=== PATIENT | female | born 1965 | race African-American/Black ===

== ENCOUNTER 2019-05-27 16:16 | Inpatient (IN) | payer OTHER ==
[~2019-05-27] VITALS: Ht 149.9 cm; Wt 64.0 kg
[2019-05-27] MEDS ORDERED: ONDANSETRON HCL INJ 2MG/ML 2ML 2 MG/ML VIAL IV PRN (16:45)
[2019-05-27] MEDS ORDERED: ASPIRIN 81 MG CHEW TAB PO ONE ×2 (16:45)
[2019-05-27] MEDS ORDERED: MORPHINE SULFATE 2 MG/ML SYR 1ML IV PRN (16:45)
[2019-05-27] MEDS ORDERED: MORPHINE SULFATE INJ 4 MG/ML INJ 1ML IV PRN (17:00)
[2019-05-27] MEDS ORDERED: ENOXAPARIN INJ 80 MG/0.8 ML SYR SC SCH ×2 (17:00→21:00)
[2019-05-27 17:10] LABS: BASOPHILS % 0.4 % (0.0-1.0); EOSINOPHILS # (AUTO) 0.4 (0.0-0.4); EOSINOPHILS % 3.9 % (0.0-6.0); HEMATOCRIT 39.4 % (34.2-44.1); HEMOGLOBIN 11.8 g/dL (12.0-16.0); LYMPHOCYTES # (AUTO) 2.9 (1.0-3.2); LYMPHOCYTES % 29.6 % (18.0-39.1); MEAN CORPUSCULAR HEMOGLOBIN 27.5 pg (28-32); MEAN CORPUSCULAR HGB CONC 29.9 g/dL (31-35); MEAN CORPUSCULAR VOLUME 91.8 fL (81-99); MONOCYTES # (AUTO) 0.7 (0.2-0.8); NEUTROPHILS # (AUTO) 5.8 (2.1-6.9); NEUTROPHILS % 58.9 % (38.7-80.0); PLATELET COUNT 282 x10e3/uL (140-360); RED BLOOD COUNT 4.29 x10e6/uL (3.6-5.1); RED CELL DISTRIBUTION WIDTH 16.3 % (11.7-14.4)
[2019-05-27 17:27] LABS: ALANINE AMINOTRANSFERASE 6 IU/L (0-55); ALBUMIN 3.4 g/dL (3.5-5.0); ALBUMIN/GLOBULIN RATIO 0.7 (0.8-2.0); ALKALINE PHOSPHATASE 89 IU/L (40-150); ANION GAP 12.6 mmol/L (8-16); BLOOD UREA NITROGEN 7 mg/dL (7-26); BUN/CREATININE RATIO 8 (6-25); CALCIUM 9.9 mg/dL (8.4-10.2); CARBON DIOXIDE 35 mmol/L (22-29); CHLORIDE 93 mmol/L (98-107); CREATININE, SERUM 0.85 mg/dL (0.57-1.11); EST GLOMERULAR FILTRATION RATE > 60 ML/MIN (60-); GLUCOSE 109 mg/dL (74-118); POTASSIUM 3.6 mmol/L (3.5-5.1); SODIUM 137 mmol/L (136-145)
[2019-05-27 17:36] LABS: ABG HCO3 36 mmol/L (23-28); ABG PCO2 55 mmHg (41-51); ABG PH 7.43 (7.31-7.41); ABG PO2 114 mmHg (80-105)
[2019-05-27 17:43] LABS: CREATINE KINASE 108 IU/L (29-168)
[2019-05-27 18:22] LABS: INR 0.92; PROTHROMBIN TIME 12.9 seconds (11.9-14.5)
[2019-05-27] MEDS ORDERED: ZOLPIDEM TARTRATE 5 MG TAB PO PRN (18:30)
[2019-05-27] MEDS ORDERED: HYDROCODONE/APAP 10MG-325MG TAB PO PRN (18:30)
--- NOTE | 2019-05-27 18:49 | Pre Op History & Physical ---
CHIEF COMPLAINT: Dyspnea and pulmonary embolism on outside CT scan. HISTORY OF PRESENT ILLNESS: The patient is a 63-year-old woman with a history of asthma. She also has a history of HIV and is on anti-retroviral therapy. Her last CD4 count and viral load were within normal limits. She has had problems with recurrent dyspnea and hypoxemia and required hospitalizations at [facility] and then at a town. She had no cardiac problems. She was treated for asthma with some benefit. She came back to the office late last week with low oxygen saturation, but did not complain of dyspnea or chest pain. She was scheduled for a CT scan with the PE protocol today. She had pulmonary emboli in the right upper lobe and the left lobe. PAST MEDICAL HISTORY: 1. HIV. 2. Asthma. 3. No prior cardiac problems. PAST SURGICAL HISTORY: Noncontributory. ALLERGIES: THE PATIENT IS ALLERGIC TO BACTRIM. FAMILY HISTORY: Noncontributory. SOCIAL HISTORY: The patient is not an active smoker. She is not an active drinker. REVIEW OF SYSTEMS: The patient has no headache or neck pain. She is not having any chest pain. She does not complain of dyspnea, but she has noted low oxygen saturations at home. She does not complain of chest pain. She has no nausea or vomiting. She has no leg edema. PHYSICAL EXAMINATION: VITAL SIGNS: The patient is afebrile. The blood pressure is 120/77, saturation is 96% on high-flow oxygen. HEENT: Shows no facial swelling or erythema. The nasal mucosa is normal. The oropharynx is normal. LYMPHATIC: Shows no submandibular, cervical, or supraclavicular adenopathy. CARDIAC: Reveals regular rate and rhythm with normal S1, S2. LUNGS: Auscultation of lungs reveals clear breath sounds bilaterally. There is no wheezing. ABDOMEN: Soft, nontender. There is no rebound or guarding. EXTREMITIES: Show no leg edema or calf tenderness. There is no cyanosis or clubbing. SKIN: Shows no rashes. NEUROLOGICAL: Shows no focal abnormalities. LABORATORY DATA: The BUN to creatinine ratio is 7-0.85. Other electrolytes are within normal limits. The white blood cell count is 9.8 and hemoglobin is 11.8. Blood gas is 7.43, 55, 114, and 36. IMPRESSION: 1. Pulmonary emboli. 2. Chronic persistent asthma. 3. Human immunodeficiency virus. PLAN: 1. The patient will be started on Lovenox and 1 mg/kg twice daily. 2. She will have an echocardiogram. 3. Consider thrombolytics if the patient has hemodynamic instability or elevated right-sided pressures on echocardiogram. 4. Continue outpatient inhalers. 5. Continue anti-retroviral therapy. 6. Consultation with Infectious Disease. MD JESSICA Goodman/VINNIE /[id number]
[2019-05-27] MEDS ORDERED: DICYCLOMINE HCL10 MG (20:01)
[2019-05-27] MEDS ORDERED: GUAIFENESIN-CO118 M1 (20:01)
[2019-05-27] MEDS ORDERED: LISINOPRIL10 MG (20:01)
[2019-05-27] MEDS ORDERED: ODEFSEY (20:01)
[2019-05-27] MEDS ORDERED: FERROUS SULFAT325 MG (20:01)
[2019-05-27] MEDS ORDERED: FAMOTIDINE20 MG (20:01)
[2019-05-27] MEDS ORDERED: ONDANSETRON HCL4 MG (20:01)
[2019-05-27] MEDS ORDERED: ACETAMINOPHEN-1 EAC4 (20:01)
[2019-05-27] MEDS ORDERED: ASPIRIN EC81 MG (20:01)
[2019-05-27] MEDS ORDERED: PREDNISONE10 MG (20:01)
[2019-05-27] MEDS ORDERED: NATEGLINIDE120 MG (20:01)
[2019-05-27] MEDS ORDERED: VALACYCLOVIR500 MG (20:01)
[2019-05-27] MEDS ORDERED: MAG-OXIDE400 MG (20:01)
[2019-05-27] MEDS ORDERED: NYSTATIN500000 UNI (20:01)
[2019-05-27] MEDS ORDERED: SIMVASTATIN20 MG PO (20:01)
[2019-05-27] MEDS ORDERED: CETIRIZINE HCL10 MG (20:01)
[2019-05-27] MEDS ORDERED: METFORMIN HCL1000 MG (20:01)
[2019-05-27] MEDS ORDERED: FLUTICASONE PRO16 GM (20:01)
[2019-05-27] MEDS ORDERED: HYDROXYZINE HCL10 MG (20:01)
[2019-05-27] MEDS ORDERED: LYRICA150 MG (20:01)
[2019-05-27] MEDS ORDERED: SUCRALFATE1 GM (20:01)
[2019-05-27] MEDS ORDERED: VERAPAMIL ER120 M1 (20:01)
[2019-05-27 21:00] VITALS: BP 111/73
[2019-05-27 22:03] VITALS: BP 105/68
[2019-05-27 23:00] VITALS: BP 122/80
[2019-05-27] MEDS: BUDESONIDE/FORMOTEROL 160/4.5MCG INHALER INH SCH (23:05)
[2019-05-27 23:23] VITALS: BP 122/80
[2019-05-27] MEDS ORDERED: PNEUMOCOCCAL VACCINE POLYVALENT 23 MCG/0.5 ML VIAL IM SCH (23:31)
[2019-05-28] VITALS (26 sets, daily range): BP systolic 93–121; BP diastolic 46–76
[2019-05-28 01:47] LABS: CREATINE KINASE 67 IU/L (29-168)
[2019-05-28 05:27] LABS: BASOPHILS % 0.6 % (0.0-1.0); EOSINOPHILS # (AUTO) 0.4 (0.0-0.4); HEMATOCRIT 34.5 % (34.2-44.1); HEMOGLOBIN 10.2 g/dL (12.0-16.0); LYMPHOCYTES # (AUTO) 2.6 (1.0-3.2); LYMPHOCYTES % 40.9 % (18.0-39.1); MEAN CORPUSCULAR HEMOGLOBIN 27.6 pg (28-32); MEAN CORPUSCULAR HGB CONC 29.6 g/dL (31-35); MEAN CORPUSCULAR VOLUME 93.2 fL (81-99); MONOCYTES # (AUTO) 0.6 (0.2-0.8); MONOCYTES % 8.7 % (4.4-11.3); NEUTROPHILS # (AUTO) 2.7 (2.1-6.9); NEUTROPHILS % 43.5 % (38.7-80.0); PLATELET COUNT 201 x10e3/uL (140-360); RED CELL DISTRIBUTION WIDTH 16.4 % (11.7-14.4)
[2019-05-28 05:41] LABS: BLOOD UREA NITROGEN 7 mg/dL (7-26); BUN/CREATININE RATIO 10 (6-25); CALCIUM 9.2 mg/dL (8.4-10.2); CARBON DIOXIDE 31 mmol/L (22-29); CHLORIDE 97 mmol/L (98-107); CREATININE, SERUM 0.73 mg/dL (0.57-1.11); EST GLOMERULAR FILTRATION RATE > 60 ML/MIN (60-); GLUCOSE 135 mg/dL (74-118); SODIUM 140 mmol/L (136-145)
[2019-05-28] MEDS: ENOXAPARIN INJ 80 MG/0.8 ML SYR SC SCH ×2 (05:54→16:59)
--- NOTE | 2019-05-28 06:15 | Diagnostic Imaging Report ---
EXAMINATION: CHEST SINGLE (PORTABLE) COMPARISON: None INDICATION: ^Pulmonary Emboli ^[id number] ^0555 DISCUSSION: Frontal view of the chest obtained at 0558 hours. HEART AND MEDIASTINUM: The heart is mildly enlarged. LINES: None. LUNGS: Lung volumes are low. Multifocal airspace opacities are present, particularly in the right lung. No pneumonia or pulmonary edema. PLEURA: No large effusions. No pneumothorax. BONES AND SOFT TISSUES: No focal osseous lesion. The soft tissues are normal. IMPRESSION: Multifocal airspace opacities suggestive of pneumonia in the appropriate clinical setting. Mild cardiomegaly. Signed by: Dr. Phoenix Brady MD on 05/28/2019 6:12 AM
[2019-05-28] MEDS: BUDESONIDE/FORMOTEROL 160/4.5MCG INHALER INH SCH ×2 (07:26→18:45)
[2019-05-28 08:54] LABS: CREATINE KINASE 55 IU/L (29-168)
[2019-05-28] MEDS ORDERED: FAMOTIDINE 20 MG TAB PO SCH (09:00)
[2019-05-28] MEDS ORDERED: ONDANSETRON HCL 4 MG ORAL DISINTEGRATING TAB PO PRN (09:00)
[2019-05-28] MEDS ORDERED: HOME MEDICATION--PATIENTS OWN PO SCH ×2 (09:00)
[2019-05-28] MEDS: SUCRALFATE 1 GM TAB PO SCH ×4 (09:14→23:24)
[2019-05-28] MEDS: ODEFSEY PO SCH (09:15)
[2019-05-28] MEDS: PREDNISONE 10 MG TAB PO SCH (09:15)
[2019-05-28] MEDS: FERROUS SULFATE 325 MG TAB PO SCH ×2 (09:15→09:54)
[2019-05-28] MEDS: PREGABALIN 75 MG CAP PO SCH ×3 (09:16→21:24)
[2019-05-28] MEDS: LISINOPRIL 10 MG TAB PO SCH (09:16)
[2019-05-28] MEDS ORDERED: GUAIFENESIN/DEXTROMETHORPHAN LIQD 5 ML UDC PO PRN (09:30)
[2019-05-28] MEDS: FLUTICASONE PROPIONATE NASAL SPRAY NS SCH ×2 (09:33→16:00)
[2019-05-28] MEDS: NATEGLINIDE 120 MG TAB PO SCH ×3 (09:33→21:24)
[2019-05-28] MEDS ORDERED: GUAIFENESIN/CODEINE 10 ML CUP PO PRN (10:00)
--- NOTE | 2019-05-28 12:12 | Progress Note ---
DATE: SUBJECTIVE: The patient remains on high-flow oxygen. She is on 50% with saturations of 97%. She does not complain of any dyspnea or chest pain. PHYSICAL EXAMINATION: VITAL SIGNS: The patient is afebrile. The vital signs are stable. HEENT: Shows no facial swelling or erythema. CARDIAC: Reveals a regular rate and rhythm with a normal S1, S2. There are no murmurs or rubs. LUNGS: Auscultation of lungs reveal clear breath sounds bilaterally. There is no wheezing. ABDOMEN: Soft, nontender. There is no rebound or guarding. EXTREMITIES: Shows no leg edema or calf tenderness. There is no cyanosis or clubbing. SKIN: Shows no rashes. NEUROLOGICAL: Shows no focal abnormalities. IMPRESSION: 1. Pulmonary emboli. 2. Hypertension. 3. Asthma. 4. Human immunodeficiency virus. PLAN: 1. Continue Lovenox twice daily. 2. Await echocardiogram results. 3. Wean oxygen as tolerated. MD JESSICA Goodman/VINNIE /[id number]
--- NOTE | 2019-05-28 13:16 | NUR ---
Nutrition Screen Note RD Recommendation for Physician: Consider liberalizing diet to promote Po intake Plan of Care: RD following, monitoring for tolerance and adequacy Nutrition reason for involvement: Nutrition Risk Trigger - MST Primary Diagnose(s): PE, hypoxia PMH:HIV, asthma Ht:59 in Wt:141lb BMI:28.5 kg/m2 IBW:95lb +/-10% RD Assessment: (05/28/2019) Chart reviewed. Labs and meds reviewed. Initial encounter with patient. Pt is reporting a decreased appetite and 20 pound wt loss over the last 3 months [employer] with a UBW of about 160#. RD and dietetic assistant obtained Pt's food preferences. Pt refusing commercial beverages and has limited acceptance of snacks offered at [facility]. Pt ate about 50% of lunch at time of visit. Pt ate 100% of meals yesterday. Encouraged Po intake and feel that Pt's PO intake will improve now that food preferences have been obtained. Pt denies nausea, vomiting, diarrhea nor has any difficulty chewing or swallowing. Pt denies any food allergies. Current Diet: Cardiac diet Malnutrition Evaluation (05/28/2019) The patient does not meet criteria for a specified degree of malnutrition at this time. Will re-evaluate at follow-up as appropriate. Diet Education Needs Assessment: Diet education not indicated. Nutrition Care Level: Low Signed: Denzel Gerard RD, LD, [facility]
[2019-05-28 18:29] LABS: CREATINE KINASE 46 IU/L (29-168)
--- NOTE | 2019-05-28 21:04 | Consultation ---
DATE OF CONSULTATION: 05/28/2019 INFECTIOUS DISEASE CONSULT REASON FOR CONSULTATION: Antiretroviral medication management. Thank you Dr. Goodman for asking me to see this patient. HISTORY OF PRESENT ILLNESS: The patient is a 53-year-old woman, who was admitted through the emergency department and referred for antiretroviral medication management. She was admitted with pulmonary embolism. She presented to the emergency department with recurrent shortness of breath and low oxygenation. CT scan with PE protocol done outpatient, showed pulmonary embolism. The patient was diagnosed with HIV in 2000, when was hospitalized and diagnosed with AIDS. She claimed that her CD4 count has been above 500 since diagnosis. Her antiretroviral medication history consists of Combivir plus Viramune, which was simplified to Odefsey (emtricitabine/TAF/rilpivirine combination). The patient has been compliant with an antiretroviral medication and has not missed a dose since the last admission. PAST MEDICAL HISTORY: Diabetes mellitus type 2, hypertension, hyperlipidemia, HIV, and asthma. PAST SURGICAL HISTORY: Hysterectomy. ALLERGIES: BACTRIM. MEDICATIONS: See NOV. IMMUNIZATION: She has received pneumococcal vaccination in the past. FAMILY HISTORY: Noncontributory. SOCIAL HISTORY: No alcohol or tobacco use. REVIEW OF SYSTEMS: As per history of present illness. She still has shortness of breath, but denies cough, nausea, vomiting, diarrhea, abdominal pain, and dysuria. PHYSICAL EXAMINATION: GENERAL: Mildly dyspneic on supplemental oxygen. VITAL SIGNS: T-max 98.7, pulse rate 85, respiratory rate 20, blood pressure 102/64, and weight 141 pounds. HEENT: Normocephalic. There is no icterus or injection of conjunctivae. There is no ear or nasal discharge. Moist oral mucosa. No pharyngeal erythema or exudate. NECK: Supple. No meningismus. LUNGS: Good air entry bilaterally. HEART: Normal S1 and S2. Regular. ABDOMEN: Soft and nontender. EXTREMITIES: There is no edema, clubbing, or cyanosis. Dorsalis pedis and posterior tibial pulses are palpable in both feet. SKIN: There is no acute erythema. ABLE BODIED TANKERMAN: Awake, alert, and oriented to person, place, and time. There is decreased sensation to monofilament test of the feet. Nonfocal. LABORATORY AND DIAGNOSTICS: WBC 6,290, hemoglobin 10.2, platelet 201,000, neutrophils 43.5, lymphocytes 40.9, monocytes 8.7, eosinophils 6, and basophils 0.6. BUN 7, creatinine 0.73, and blood glucose 135. IMPRESSION: 1. Pulmonary embolism. 2. Human immunodeficiency virus infection. 3. Diabetes mellitus type 2, controlled. 4. Asthma. PLAN: 1. Anticoagulation per Pulmonary Service. 2. The patient is to continue her own supply of antiretroviral medications. Discontinue Pepcid (rilpivirine) requires acidic medium for absorption. MD STEVE Hernandez/MODL /[id number] NEHEMIAS
[2019-05-28] MEDS: SIMVASTATIN 20 MG TAB PO SCH (21:25)
[2019-05-29] VITALS (26 sets, daily range): BP systolic 96–123; BP diastolic 55–107
[2019-05-29] MEDS: ENOXAPARIN INJ 80 MG/0.8 ML SYR SC SCH ×2 (05:03→15:59)
[2019-05-29] MEDS: PREGABALIN 75 MG CAP PO SCH ×3 (07:57→20:52)
[2019-05-29] MEDS: ODEFSEY PO SCH (07:57)
[2019-05-29] MEDS: PREDNISONE 10 MG TAB PO SCH (07:57)
[2019-05-29] MEDS: NATEGLINIDE 120 MG TAB PO SCH ×3 (07:58→20:52)
[2019-05-29] MEDS: FERROUS SULFATE 325 MG TAB PO SCH ×2 (07:58→15:59)
[2019-05-29] MEDS: LISINOPRIL 10 MG TAB PO SCH (07:58)
[2019-05-29] MEDS: FLUTICASONE PROPIONATE NASAL SPRAY NS SCH ×2 (09:00→15:59)
[2019-05-29] MEDS: BUDESONIDE/FORMOTEROL 160/4.5MCG INHALER INH SCH ×2 (09:00→20:15)
[2019-05-29] MEDS: SUCRALFATE 1 GM TAB PO SCH ×2 (10:17→15:59)
--- NOTE | 2019-05-29 15:32 | Consultation ---
DATE OF CONSULTATION: Cardiology Consultation CHIEF COMPLAINT: The patient is a 53-year-old with shortness of breath. HISTORY OF PRESENT ILLNESS: The patient is a 53-year-old woman with a history of human immunodeficiency virus, on anti-retroviral therapy. The patient had developed dyspnea and hypoxia and had a CAT scan done, which demonstrated pulmonary emboli in the right upper lobe and in the left lower lobe. The patient has had no chest pain. PAST MEDICAL HISTORY: Significant for: 1. Human immunodeficiency virus. 2. Asthma. SOCIAL HISTORY: The patient does not drink and does not smoke. FAMILY HISTORY: There is a family history of some hypertension. PHYSICAL EXAMINATION: GENERAL: The patient is a well-developed, well-nourished female, in no obvious distress. VITAL SIGNS: Included a temperature of 98.8, blood pressure of 130/70, pulse was 74. HEAD, EARS, EYES, NOSE, AND THROAT: The patient's cranium was normocephalic and atraumatic. Extraocular muscles were intact. Sclerae were anicteric. NECK: Supple. No jugular venous distention. No carotid bruits. CHEST: Demonstrated rhonchi bilaterally. Cardiac exam demonstrated normal S1 and S2 with no murmurs, rubs, or gallops. ABDOMEN: Demonstrated good bowel sounds. No tenderness and no masses. EXTREMITIES: No clubbing, no cyanosis, and no edema. NEUROLOGIC: The patient was alert and oriented x3. Cranial nerves II through XII were intact. IMAGING: The patient's echocardiogram demonstrated normal left ventricular size and function with an ejection fraction of 60%. The patient's EKG demonstrated normal sinus rhythm with some nonspecific ST and T-wave changes. IMPRESSION: The patient is a human immunodeficiency virus positive female with pulmonary emboli. RECOMMENDATIONS: 1. The patient will need to be continued on Lovenox and started on anticoagulation. 2. The echocardiogram demonstrated normal left ventricular size and function with no thrombus. 3. There are no active cardiac issues at this time. Fredy Goodman MD [facility]/MODL /[id number] cc: Harvinder Goodman MD
--- NOTE | 2019-05-29 15:57 | Progress Note ---
DATE: Pulmonary Critical Care Progress Note SUBJECTIVE: The patient still requiring Vapotherm. She does not complain of dyspnea or chest pain. She is not having cough. PHYSICAL EXAMINATION: VITAL SIGNS: The patient is afebrile. The vital signs are stable. HEENT: Shows no facial swelling or erythema. CARDIAC: Reveals a regular rate and rhythm with a normal S1, S2. There are no murmurs or rubs. Auscultation of lungs reveals clear breath sounds bilaterally. There is no wheezing. ABDOMEN: Soft, nontender. There is no rebound or guarding. EXTREMITIES: Show no leg edema or calf tenderness. There is no cyanosis or clubbing. SKIN: Shows no rashes. NEUROLOGICAL: Shows no focal abnormalities. IMPRESSION: 1. Pulmonary emboli. 2. Asthma. 3. Hypertension. 4. Immunodeficiency virus. PLAN: 1. Continue Lovenox twice a day. 2. Continue to decrease liter flow and FiO2 on Vapotherm. 3. Echocardiogram was within normal limits. 4. Continue anti-retroviral therapy. 5. Discussed the possibility of thrombolytics with the patient, but we will hold off on thrombolysis for now. 6. The patient is hemodynamically unstable or has evidence of right ventricular failure. Harvinder Goodman MD [facility]/VINNIE /[id number]
[2019-05-29] MEDS: SIMVASTATIN 20 MG TAB PO SCH (20:52)
[2019-05-29] MEDS: DOCUSATE SODIUM 100 MG CAP PO SCH (21:32)
[2019-05-30] VITALS (21 sets, daily range): BP systolic 84–117; BP diastolic 51–87
[2019-05-30] MEDS: SUCRALFATE 1 GM TAB PO SCH ×5 (00:09→20:17)
[2019-05-30] MEDS: ENOXAPARIN INJ 80 MG/0.8 ML SYR SC SCH ×2 (05:39→16:39)
--- NOTE | 2019-05-30 07:00 | NUR ---
End of shift. Received pt from cath lab radiology technician, no complications noted. Hemodialysis ordered. Pt became aggitated quickly requiring sedation to access the A-V graft and dialyze. Poor tolerance to propofol due to low blood pressures. Precedex was ordered. At the end of hemodialysis pt demonstrated onset bradycardia decreasing to HR 28, atropine was given and rapid response called. Dr Dailey came to evaluate. Orders received. Dr Lazo had received a couple calls already including lab results to direct care. Dr Citlaly Holley was notified of labs, bradycardia, hypotension, and hemodialysis completed. Manny Lazo, and Kishan evaluated pt in the unit. Critical am labs also called to Dr Pascual. Upon shift change, pt is more stable though remains with bedside external pacer in place, but not in use. The dopamine is infusing with positive response. remains at bedside.
[2019-05-30] MEDS: PREGABALIN 75 MG CAP PO SCH ×3 (08:31→20:15)
[2019-05-30] MEDS: FERROUS SULFATE 325 MG TAB PO SCH ×2 (08:31→16:39)
[2019-05-30] MEDS: PREDNISONE 10 MG TAB PO SCH (08:31)
[2019-05-30] MEDS: NATEGLINIDE 120 MG TAB PO SCH ×3 (08:31→20:15)
[2019-05-30] MEDS: ODEFSEY PO SCH (08:31)
[2019-05-30] MEDS: LISINOPRIL 10 MG TAB PO SCH (08:31)
[2019-05-30] MEDS: FLUTICASONE PROPIONATE NASAL SPRAY NS SCH ×2 (08:35→16:42)
[2019-05-30] MEDS: BUDESONIDE/FORMOTEROL 160/4.5MCG INHALER INH SCH ×2 (10:25→19:45)
--- NOTE | 2019-05-30 13:52 | NUR ---
53 Y/O female Patient with pulmonary embolism and hypoxia Labs: WBC 6.29, Glucose 268,Alb 3.4 Assessment findings : Rt buttocks 0.9cmx0.8cmx0.2cm light red stage 2 ulceration noted minimal serosanguineous drainage noted cristina skin intact and blanchable with appropriate coloration for patient skin tone No other skin alterations or redness noted with full skin assessment Recommendations: Nursing to continue to protect ,reposition and offload with Q shift skin assessment Nursing to continue to maintain alternating air Mattress Nursing to continue to utilize bilateral heel protectors and pillow suspension Nursing to apply to Rt buttock fibrocol collagen drsng cover with allevyn foam QOD Addendum: 05/30/19 at 1419 by Haresh Floyd RN Amended: Links added.
--- NOTE | 2019-05-30 16:54 | Progress Note ---
DATE: SUBJECTIVE: The patient is decreased to 3 L of oxygen and saturating 97%. She is off the Vapotherm. PHYSICAL EXAMINATION: VITAL SIGNS: The patient is afebrile. The vital signs are stable. HEENT: Shows no facial swelling or erythema. LYMPHATIC: Shows no submandibular, cervical, or supraclavicular adenopathy. CARDIAC: Reveals regular rate and rhythm with normal S1, S2. There are no murmurs or rubs. LUNGS: Auscultation of lungs reveals clear breath sounds bilaterally. There is no wheezing. ABDOMEN: Soft, nontender. There is no rebound or guarding. EXTREMITIES: Show no leg edema or calf tenderness. IMPRESSION: 1. Pulmonary emboli. 2. Human immunodeficiency virus. 3. Asthma. 4. Hypertension. PLAN: 1. Continue to decrease oxygen as tolerated. 2. Continue Lovenox twice daily. The patient will need Eliquis upon discharge. 3. Continue inhalers. 4. Transfer out of ICU. Harvinder Goodman MD [facility]/MODL /[id number]
[2019-05-30] MEDS: SIMVASTATIN 20 MG TAB PO SCH (20:15)
[2019-05-31] VITALS (8 sets, daily range): BP systolic 91–114; BP diastolic 44–87
[2019-05-31] MEDS: ENOXAPARIN INJ 80 MG/0.8 ML SYR SC SCH ×2 (04:31→16:14)
[2019-05-31] MEDS: BUDESONIDE/FORMOTEROL 160/4.5MCG INHALER INH SCH ×2 (07:25→19:15)
[2019-05-31] MEDS: SUCRALFATE 1 GM TAB PO SCH ×4 (07:30→20:07)
[2019-05-31] MEDS: PREGABALIN 75 MG CAP PO SCH ×3 (08:29→20:05)
[2019-05-31] MEDS: FLUTICASONE PROPIONATE NASAL SPRAY NS SCH ×2 (08:29→16:14)
[2019-05-31] MEDS: FERROUS SULFATE 325 MG TAB PO SCH ×2 (08:29→16:14)
[2019-05-31] MEDS: ODEFSEY PO SCH (08:29)
[2019-05-31] MEDS: NATEGLINIDE 120 MG TAB PO SCH ×3 (08:30→20:05)
[2019-05-31] MEDS: PREDNISONE 10 MG TAB PO SCH (08:30)
[2019-05-31] MEDS: LISINOPRIL 10 MG TAB PO SCH (08:30)
--- NOTE | 2019-05-31 16:50 | Progress Note ---
DATE: SUBJECTIVE: The patient is improving. Her oxygen is down to 1 L. She does not complain of dyspnea or cough. PHYSICAL EXAMINATION: VITAL SIGNS: The patient is afebrile. The vital signs are stable. HEENT: Shows no facial swelling or erythema. CARDIAC: Reveals regular rate and rhythm with a normal S1 and S2. There are no murmurs or rubs heard. LUNGS: Auscultation of lungs reveals rhonchorous breath sounds bilaterally. There is no wheezing. ABDOMEN: Soft and nontender. There is no rebound or guarding. EXTREMITIES: Shows no leg edema or calf tenderness. IMPRESSION: 1. Pulmonary embolism. 2. Human immunodeficiency virus. PLAN: 1. Wean the patient off oxygen. 2. Continue anticoagulation. The patient will need Eliquis on discharge. 3. Tentative discharge for tomorrow. Harvinder Goodman MD [facility]/PRICILAL /[id number]
[2019-05-31] MEDS: SIMVASTATIN 20 MG TAB PO SCH (20:05)
[2019-05-31] MEDS: DOCUSATE SODIUM 100 MG CAP PO SCH (20:07)
--- NOTE | 2019-05-31 22:45 | NUR ---
Report called to Courtney RINCON, pt transferred in wheelchair to room 207. No complaints at this time.
--- NOTE | 2019-05-31 22:50 | NUR ---
RECEIVED PT TO UNIT ROOM 207 VIA WHEELCHAIR.PT AMBULATED FROM WHEELCHAIR TO BED WITHOUT ANY DIFFICULTY.PT AAO X 3.NO S/S OF DISTRESS NOTED.RESPIRATIONS EVEN/NON LABORED.PT DENIES ANY NEEDS AT THIS TIME.ORIENTED PT TO ROOM,BATHROOM,CALL LIGHT/TV REMOTE.BED IN THE LOWEST/LOCKED POSITION.INSTRUCTED PT TO CALL FOR ASSISTANCE NEEDED BY PRESSING CALL LIGHT.PT VERBALIZED UNDERSTANDING.CALL LIGHT WITHIN EASY REACH.
[2019-06-01] MEDS: ENOXAPARIN INJ 80 MG/0.8 ML SYR SC SCH (05:00)
[2019-06-01 05:57] VITALS: BP 114/87
[2019-06-01 05:59] VITALS: BP 114/80
--- NOTE | 2019-06-01 07:00 | NUR ---
BEDSIDE SHIFT REPORT RECEIVED FROM DRIVER TRAINER RN. PT DENIES NEEDS AT THIS TIME.
--- NOTE | 2019-06-01 07:01 | NUR ---
BEDSIDE SHIFT REPORT GIVEN TO ONCOMING NURSE.PT RESTING IN BED WITH NO S/S OF DISTRESS.
[2019-06-01] MEDS: BUDESONIDE/FORMOTEROL 160/4.5MCG INHALER INH SCH (07:26)
[2019-06-01 08:00] VITALS: BP 89/63
[2019-06-01] MEDS: SUCRALFATE 1 GM TAB PO SCH ×2 (08:24→11:41)
[2019-06-01] MEDS: PREGABALIN 75 MG CAP PO SCH (08:25)
[2019-06-01] MEDS: PREDNISONE 10 MG TAB PO SCH (08:26)
[2019-06-01] MEDS: FERROUS SULFATE 325 MG TAB PO SCH ×2 (08:26→09:00)
[2019-06-01] MEDS: LISINOPRIL 10 MG TAB PO SCH (08:29)
[2019-06-01] MEDS: ODEFSEY PO SCH (08:29)
[2019-06-01] MEDS: FLUTICASONE PROPIONATE NASAL SPRAY NS SCH ×2 (09:00→11:00)
[2019-06-01 09:14] VITALS: BP 89/63
[2019-06-01] MEDS: NATEGLINIDE 120 MG TAB PO SCH (10:46)
[2019-06-01 12:00] VITALS: BP 94/59
--- NOTE | 2019-06-01 12:30 | NUR ---
DR. ANTONIO AT BEDSIDE. D/C PT PER THE
[2019-06-01] MEDS ORDERED: XOPENEX0.31 MG/3 (13:17)
--- NOTE | 2019-06-01 13:30 | NUR ---
PT DISCHARGED HOME SAFELY. PT ESCORTED TO THE PARKING LOT. IV REMOVED. TIP INTACT. NO BLEEDING NOTED. DRESSING APPLIED. INFORMED PT ABOUT FOLLOW UP WITH DR. ANTONIO IN 1 WEEK. PT DENIED FURTHER NEEDS.
--- NOTE | 2019-06-01 19:42 | Discharge Summary ---
DISCHARGE DIAGNOSES: 1. Pulmonary embolism. 2. Asthma. 3. Human immunodeficiency virus. 4. Diabetes mellitus. DISCHARGE MEDICATIONS: 1. Eliquis 5 mg p.o. b.i.d. 2. Aspirin 81 mg p.o. daily. 3. Cetirizine 10 mg p.o. daily. 4. Famotidine 20 mg p.o. b.i.d. 5. Ferrous sulfate 325 mg p.o. daily. 6. Fluticasone nasal spray daily. 7. Lisinopril 10 mg p.o. daily. 8. Metformin 100 mg b.i.d. 9. Nateglinide 120 mg p.o. t.i.d. 10. Lyrica 150 mg p.o. t.i.d. 11. Simvastatin 20 mg p.o. daily. 12. Valacyclovir 500 mg p.o. daily. 13. Anti-retroviral therapy. HISTORY OF PRESENT ILLNESS: The patient is a 53-year-old woman with a history of asthma and human immunodeficiency virus. She recently required hospitalization at [facility] because of low oxygen saturations and has continued to have low oxygen saturations. CT scan as an outpatient at [facility] on the day of admission showed pulmonary emboli. She was subsequently brought to the emergency department and started on anticoagulation. HOSPITAL COURSE: The patient was admitted. She was started on Lovenox 1 mg/kg twice daily. She continued her standard asthma medications as well as her anti-retroviral medications. She was seen by Infectious Disease as well. The patient had an echocardiogram that showed no increased right ventricular pressures. She gradually improved on the Lovenox. She was weaned off the oxygen. She had no dyspnea or chest pain at the time of discharge. She was eager to go home. DISPOSITION: The patient will go home. She will continue Eliquis 5 mg p.o. b.i.d. She will follow up with Dr. Goodman in 1 week. Harvinder Goodman MD [facility]/PRICILAL /[id number]
== END 2019-06-01 14:10 | disposition home or self-care (01) | DRG 176 ==
LOC: ER 16:16 → EDBD 16:43 → ERHOLD 16:43 → ICU 20:58 → MED/SURG2 05-31 22:49
PROVIDERS: ADMIT Internal Medicine Critical Care Medicine; ATTEND Internal Medicine Critical Care Medicine
DX: I26.99 Other pulmonary embolism without acute cor pulmonale (principal); B20 Human immunodeficiency virus [HIV] disease; J45.909 Unspecified asthma, uncomplicated; E11.9 Type 2 diabetes mellitus without complications; E78.5 Hyperlipidemia, unspecified
CPT/HCPCS: 36415; 71045; 80048; 80053; 82550; 82553; 82805; 82948; 84484; 85025; 85610; 93005; 93306; 94664; 99284; J1650; J2270; J2405; J7512

== ENCOUNTER → 2020-09-17 | Outpatient (CLI) | payer OTHER ==
[~2020-09-17] MED LIST: ACETAMINOPHEN-1 EAC4; ASPIRIN EC81 MG; CETIRIZINE HCL10 MG; DICYCLOMINE HCL10 MG; FAMOTIDINE20 MG; FERROUS SULFAT325 MG; FLUTICASONE PRO16 GM; GUAIFENESIN-CO118 M1; HYDROXYZINE HCL10 MG; IOPAMIDOL 370 MG/ML 200 ML INFUS..BTL INJ ONE; LISINOPRIL10 MG; LYRICA150 MG; MAG-OXIDE400 MG; METFORMIN HCL1000 MG; NATEGLINIDE120 MG; NYSTATIN500000 UNI; ODEFSEY; ONDANSETRON HCL4 MG; PREDNISONE10 MG; SIMVASTATIN20 MG PO; SODIUM CHLORIDE 0.9% 50ML 50 ML ONE; SUCRALFATE1 GM; VALACYCLOVIR500 MG; VERAPAMIL ER120 M1; XOPENEX0.31 MG/3
[2020-09-17 09:40] LABS: BLOOD UREA NITROGEN 10 mg/dL (7-26); BUN/CREATININE RATIO 11 (6-25); CREATININE, SERUM 0.89 mg/dL (0.57-1.11); EST GLOMERULAR FILTRATION RATE > 60 ML/MIN (60-)
== END ==
LOC: CT 08:33
PROVIDERS: ATTEND Internal Medicine Critical Care Medicine
DX: I26.99 Other pulmonary embolism without acute cor pulmonale (principal)
CPT/HCPCS: 36415; 71260; 82565; 84520; Q9967

== ENCOUNTER 2020-10-11 14:11 | Emergency (ER) | payer OTHER ==
[~2020-10-11] VITALS: Ht 149.9 cm; Wt 64.0 kg
[~2020-10-11 14:11] MED LIST changes: -IOPAMIDOL 370 MG/ML 200 ML INFUS..BTL INJ ONE; -SODIUM CHLORIDE 0.9% 50ML 50 ML ONE
[2020-10-11] MEDS ORDERED: ASPIRIN 81 MG CHEW TAB PO ONE (14:45)
[2020-10-11 15:07] LABS: BASOPHILS % 0.2 % (0.0-1.0); EOSINOPHILS # (AUTO) 0.1 (0.0-0.4); EOSINOPHILS % 2.2 % (0.0-6.0); HEMOGLOBIN 12.7 g/dL (12.0-16.0); LYMPHOCYTES # (AUTO) 1.3 (1.0-3.2); LYMPHOCYTES % 23.7 % (18.0-39.1); MEAN CORPUSCULAR HEMOGLOBIN 28.6 pg (28-32); MEAN CORPUSCULAR HGB CONC 32.6 g/dL (31-35); MEAN CORPUSCULAR VOLUME 87.8 fL (81-99); MONOCYTES # (AUTO) 0.4 (0.2-0.8); MONOCYTES % 7.6 % (4.4-11.3); NEUTROPHILS # (AUTO) 3.7 (2.1-6.9); NEUTROPHILS % 66.1 % (38.7-80.0); PLATELET COUNT 261 x10e3/uL (140-360); RED BLOOD COUNT 4.44 x10e6/uL (3.6-5.1); RED CELL DISTRIBUTION WIDTH 14.2 % (11.7-14.4)
[2020-10-11 15:30] LABS: ALANINE AMINOTRANSFERASE 15 IU/L (0-55); ALBUMIN 3.9 g/dL (3.5-5.0); ALBUMIN/GLOBULIN RATIO 0.8 (0.8-2.0); ALKALINE PHOSPHATASE 73 IU/L (40-150); ANION GAP 15.5 mmol/L (8-16); BLOOD UREA NITROGEN 7 mg/dL (7-26); BUN/CREATININE RATIO 10 (6-25); CALCIUM 8.9 mg/dL (8.4-10.2); CARBON DIOXIDE 25 mmol/L (22-29); CHLORIDE 103 mmol/L (98-107); CREATINE KINASE 134 IU/L (29-168); EST GLOMERULAR FILTRATION RATE > 60 ML/MIN (60-); GLUCOSE 101 mg/dL (74-118); POTASSIUM 3.5 mmol/L (3.5-5.1); SODIUM 140 mmol/L (136-145)
[2020-10-11] MEDS ORDERED: MAALOX MAXIMUM355 ML PO (16:03)
[2020-10-11] MEDS ORDERED: PANTOPRAZOLE SO40 MG PO (16:03)
[2020-10-11 16:21] VITALS: BP 142/92
== END 2020-10-11 16:23 | disposition home or self-care (01) ==
LOC: ER 14:34
DX: R06.00 Dyspnea, unspecified (principal); I10 Essential (primary) hypertension; E11.9 Type 2 diabetes mellitus without complications; E78.5 Hyperlipidemia, unspecified; B20 Human immunodeficiency virus [HIV] disease; Z85.41 Personal history of malignant neoplasm of cervix uteri
CPT/HCPCS: 36415; 71045; 80053; 82550; 82553; 83880; 84484; 85025; 99284